=== PATIENT | female | born 1990 | race Asian ===

== ENCOUNTER 2016-11-19 10:14 | Observation (INO) | payer BC ==
[~2016-11-19] VITALS: Ht 160 cm; Wt 48.5 kg
[~2016-11-19 10:14] MED LIST: AMOXICILLIN500 MG PO; BIRTH CONTROL; SOLU-MEDROL125 MG IM; TRIAMCINOLON0.11 EX
[2016-11-19] MEDS ORDERED: LEVOTHYROXIN50 MCG PO (10:45)
[2016-11-19] MEDS ORDERED: LISINOPRIL10 MG PO (10:45)
[2016-11-19 11:06] LABS: HEMATOCRIT 37.5 % (37.0-47.0); HEMOGLOBIN 11.7 g/dl (12.0-16.0); IMMATURE GRANULOCYTES 0.4 % (0.0-1.0); MEAN CELL VOLUME 90.1 fL CALC (80.0-100.0); MEAN CORPUSCULAR HGB 28.1 pG CALC (26.0-32.0); MEAN CORPUSCULAR HGB CONC 31.2 g/L CALC (32.0-36.0); NEUT# 5.5 thou/uL (2.00-7.15); RED BLOOD COUNT 4.16 mill/uL (4.20-5.60)
[2016-11-19 11:14] LABS: ALBUMIN 5.1 g/dL (3.2-5.0); ALKALINE PHOSPHATASE 74 u/l (38-126); ANION GAP 19 (6-22 (CALC)); BILIRUBIN, TOTAL 0.4 mg/dL (0.0-1.4); BUN 24 mg/dL (7-17); BUN/CREATININE RATIO 18 (12-20 (CALC)); CALCIUM 9.2 mg/dL (8.4-10.2); CARBON DIOXIDE 21 mmol/l (22-30); CHLORIDE 107 mmol/l (95-108); CREATININE 1.3 mg/dL (0.5-1.0); GFR 49 ML/MIN (>=60 (CALC)); GFR FOR AFR.AMER. 59 ML/MIN (>=60 (CALC)); GLUCOSE 81 mg/dL (65-105); LIPASE 789 u/l (23-300); POTASSIUM 4.6 mmol/l (3.5-5.1); SGOT/AST 25 u/l (14-36); SGPT/ALT 21 u/l (9-52); SODIUM 143 mmol/l (137-146); TOTAL PROTEIN 9.3 g/dL (6.3-8.2)
[2016-11-19 16:30] VITALS: BP 94/61
[2016-11-19 18:53] VITALS: BP 114/69
[2016-11-20 03:50] VITALS: BP 109/71
[2016-11-20 08:10] VITALS: BP 112/57
[2016-11-20 09:18] VITALS: BP 112/57
[2016-11-20 10:56] LABS: URINE BILIRUBIN - DIPSTICK NEGATIVE (NEGATIVE); URINE BLOOD DIPSTICK LARGE (NEGATIVE); URINE COLOR YELLOW; URINE GLUCOSE - DIPSTICK NEGATIVE (NEGATIVE); URINE KETONE 40 mg/dL (NEGATIVE); URINE LEUK ESTERASE NEGATIVE (Negative); URINE NITRITE - DIPSTICK NEGATIVE (Negative); URINE PROTEIN - DIPSTICK TRACE mg/dL (NEG-TRACE); URINE UROBILINOGEN - DIPSTICK 0.2 E.U./dL (0.2)
[2016-11-20 11:01] LABS: URINE CLARITY SLIGHT CLOUDY
[2016-11-20 11:03] LABS: URINE RBC 25-50 RBC/hpf (0-5)
[2016-11-20 11:46] LABS: HEMATOCRIT 35.9 % (37.0-47.0); HEMOGLOBIN 11.2 g/dl (12.0-16.0); IMMATURE GRANULOCYTES 0.4 % (0.0-1.0); MEAN CELL VOLUME 91.1 fL CALC (80.0-100.0); MEAN CORPUSCULAR HGB 28.4 pG CALC (26.0-32.0); MEAN CORPUSCULAR HGB CONC 31.2 g/L CALC (32.0-36.0); NEUT# 8.44 thou/uL (2.00-7.15); RED BLOOD COUNT 3.94 mill/uL (4.20-5.60); RED CELL DISTRI WIDTH 11.9 % (11.5-15.5)
[2016-11-20 12:12] LABS: ALBUMIN 4.5 g/dL (3.2-5.0); ALKALINE PHOSPHATASE 78 u/l (38-126); ANION GAP 22 (6-22 (CALC)); BILIRUBIN, TOTAL 0.7 mg/dL (0.0-1.4); BUN 23 mg/dL (7-17); BUN/CREATININE RATIO 18 (12-20 (CALC)); CALCIUM 9.5 mg/dL (8.4-10.2); CARBON DIOXIDE 16 mmol/l (22-30); CHLORIDE 107 mmol/l (95-108); CREATININE 1.2 mg/dL (0.5-1.0); GFR 54 ML/MIN (>=60 (CALC)); GFR FOR AFR.AMER. > 60 ML/MIN (>=60 (CALC)); GLUCOSE 53 mg/dL (65-105); POTASSIUM 4.7 mmol/l (3.5-5.1); SGOT/AST 21 u/l (14-36); SGPT/ALT 22 u/l (9-52); SODIUM 140 mmol/l (137-146); TOTAL PROTEIN 7.7 g/dL (6.3-8.2)
== END 2016-11-20 16:03 | disposition home or self-care (01) | DRG 439 ==
LOC: ENPENDDIS → ED 10:14 → ED-I 14:01 → ED 14:52 → MS2 14:53
PROVIDERS: Emergency Medicine; Internal Medicine; ADMIT Internal Medicine; ATTEND Internal Medicine
DX: K85.90 Acute pancreatitis without necrosis or infection, unspecified (principal); K51.90 Ulcerative colitis, unspecified, without complications; N18.3 Chronic kidney disease, stage 3 (moderate); I12.9 Hypertensive chronic kidney disease with stage 1 through stage 4 chronic kidney disease, or unspecified chronic kidney disease
CPT/HCPCS: G0378